=== PATIENT | female | born 1995 | race Caucasian/White ===

== ENCOUNTER 2021-06-23 20:02 | Emergency (ER) | payer OTHER ==
--- NOTE | 2021-06-23 20:07 | ERPHSYRPT ---
- History of Present Illness Time Seen by Provider: 06/23/21 20:06 Historian: patient Exam Limitations: no limitations Physician History: This is a 26-year-old obese white female who is 18 weeks and has had constipation for at least 5 days. Patient is taking vitamins with iron in them. She sought medical evaluation 2 days ago at [facility] and they told her to drink plenty of fluids and increase her activity as well as consume prune juice. Patient has not used MiraLAX, fleets enemas or glycerin suppositories. Patient has had no nausea or vomiting. She does have some mild lower abdominal cramping. She she has not had any vaginal bleeding. Activities at Onset: none Quality: cramping Abdominal Pain Onset Location: suprapubic Severity of Pain-Max: mild Severity of Pain-Current: mild Associated Symptoms: other, No chest pain (Constipation), No diarrhea, No loss of appetite, No nausea, No shortness of breath, No vomiting, No weakness Previous symptoms: same symptoms as today, other (Currently evaluated emergency department [facility] ) Allergies/Adverse Reactions: levetiracetam [From [facility]] Adverse Reaction (Intermediate, Verified 06/23/21 20:22) violent Home Medications: Docusate Sodium [Colace] 100 mg PO BID 06/23/21 [History] Ondansetron ODT 4 MG [Zofran Odt 4 mg] 4 mg PO Q6HPRN PRN 06/23/21 [History] Pnv,Calcium 72/Iron,Carb/Folic [ Plus Iron Tablet] 1 each PO DAILY 06/23/21 [History] Travel Risk - International Travel Have you traveled outside of the country in past 3 weeks: No - Coronavirus Screening Are you exhibiting any of the following symptoms?: No Close contact with a COVID-19 positive Pt in past 14-21 Days: No - Review of Systems Constitutional: No Symptoms Eyes: No Symptoms Ears, Nose, & Throat: No Symptoms Respiratory: No Symptoms Cardiac: No Symptoms Abdominal/Gastrointestinal: Constipation, No Abdominal Pain (Significant abdominal pain), No Nausea, No Vomiting, No Diarrhea Genitourinary Symptoms: No Symptoms Musculoskeletal: No Symptoms Skin: No Symptoms Neurological: No Symptoms Psychological: No Symptoms Endocrine: No Symptoms Hematologic/Lymphatic: No Symptoms Immunological/Allergic: No Symptoms All Other Systems: Reviewed and Negative - Past Medical History Pertinent Past Medical History: Yes - Past Surgical History Past Surgical History: Yes - Nursing Vital Signs Nursing Vital Signs: Initial Vital Signs Temperature 97.5 F 06/23/21 20:07 Respiratory Rate 18 06/23/21 20:07 O2 Sat by Pulse Oximetry 96 06/23/21 20:07 Pain Scale Pain Intensity 6 - Physical Exam General Appearance: no apparent distress, alert, anxiety, obese Eye Exam: PERRL/EOMI, eyes nml inspection Ears, Nose, Throat Exam: normal ENT inspection, moist mucous membranes Neck Exam: normal inspection, non-tender, supple, full range of motion Respiratory Exam: lungs clear, airway intact, No chest tenderness, No respiratory distress Gastrointestinal/Abdomen Exam: soft, normal bowel sounds, other (Patient does not have an acute surgical abdomen.), No tenderness, No guarding, No rebound Pelvic Exam: not done Rectal Exam: not done Back Exam: normal inspection, normal range of motion, No CVA tenderness, No vertebral tenderness Extremity Exam: normal inspection, normal range of motion, pelvis stable Neurologic Exam: alert, oriented x 3, cooperative, director of online merchandising II-XII nml as tested, normal mood/affect, nml cerebellar function, nml station & gait, sensation nml Skin Exam: normal color, warm, dry Lymphatic Exam: No adenopathy SpO2 Interpretation: normal O2 Delivery: Room Air - Course Nursing assessment & vital signs reviewed: Yes Ordered Tests: Active Orders 24 hr Category Date Time Status Enema STAT Care 06/23/21 20:44 Active Medication Summary Discontinued Medications Generic Name Dose Route Start Last Admin Trade Name Daisy PRN Reason Stop Dose Admin Polyethylene Glycol 17 gm 06/23/21 20:45 06/23/21 21:00 Polyethylene Glycol 3350 17 Gm Packet PO 06/23/21 20:46 17 gm STAT ONE Administration - Progress Progress: improved Counseled pt/family regarding: diagnosis, need for follow-up - Departure Departure Disposition: Home Clinical Impression: Constipation Condition: Stable Critical Care Time: No Referrals: DOCTOR,NO FAMILY [Primary Care Provider] - Follow up/PCP as directed Additional Instructions: Drink plenty fluids. Increase your activity. Increase your fiber in the diet as long as you are taking adequate liquid orally. Use MiraLAX [id number] as directed on the package. Use glycerin suppositories as directed on the [id number] package. Use fleets enema as directed on the [id number] package. Follow-up with your primary care physician and your computing machine operator for further evaluation and management.
[2021-06-23 20:21] VITALS: O2SAT 96
[2021-06-23] MEDS ORDERED: Miralax Powder 17GM PACKET PO ONE (20:45)
== END 2021-06-23 21:43 | disposition home or self-care (01) ==
LOC: ED 20:02
DX: K59.00 Constipation, unspecified (principal); R10.30 Lower abdominal pain, unspecified; Z33.1 Pregnant state, incidental
CPT/HCPCS: 99283; A9270-GY